=== PATIENT | female | born 1950 | race Caucasian/White ===

== ENCOUNTER 2019-01-28 12:50 | Outpatient (CLI) | payer OTHER ==
--- NOTE | 2019-02-07 09:16 | Mammography Report ---
Reason: SCREENING MAMMO Procedure Date: 01/28/2019 Accession Number: [id number] / [id number] Procedure: MGS - Screening Mammo Dig Bilat CPT Code: FULL RESULT: EXAM: Screening Mammo Dig Bilat DATE: 01/28/2019 1:16 PM CLINICAL HISTORY: Screening encounter. History of late childbearing. Family history of breast cancer in the mother at the age of 65. TECHNIQUE: (B) - Bilateral CC and MLO views were obtained. COMPARISON: 01/31/2018. PARENCHYMAL PATTERN: (F) - The breast(s) demonstrate(s) diffuse fatty replacement. FINDINGS: There are no suspicious masses, calcifications, or areas of distortion. IMPRESSION: Negative examination. BI-RADS category 1. RECOMMENDATION: (ANNUAL) - Recommend routine annual screening mammography. BI-RADS CATEGORY: (1) - Negative. STANDARD QUALIFYING STATEMENTS: 1. This examination was reviewed with the aid of Computer-Aided Detection (CAD). 2. A negative or benign imaging report should not preclude biopsy if clinically suspicious findings are present. 3. Dense breasts may obscure an underlying neoplasm. 4. This examination was reviewed without the aid of 3D breast imaging (tomosynthesis).
== END 2019-01-28 12:51 | disposition home or self-care (01) ==
LOC: DI.S 12:50
DX: Z12.31 Encounter for screening mammogram for malignant neoplasm of breast (principal); Z80.3 Family history of malignant neoplasm of breast
CPT/HCPCS: 77067

== ENCOUNTER 2020-08-20 10:02 | Outpatient (CLI) | payer MEDICARE ==
--- NOTE | 2020-08-20 15:36 | DEXA Report ---
PROCEDURE: Dexa Spine and/or Hip INDICATIONS: DISORDER OF BONE TECHNIQUE: Dual energy x-ray absorptiometry (DXA) was performed on a Babelverse System. Regions measur ed are the AP Spine, femoral neck, and if needed forearm. COMPARISON: None. FINDINGS: Lumbar Spine: Bone Mineral Density 1.165 g/cm/cm,T score -0.1, normal bone mineral density Left Femoral Neck: Bone Mineral Density 0.870 g/cm/cm, T score -1.1, osteopenia (T score greater or equal to -1.0: NORMAL) (T score from -1.1 to -2.4: OSTEOPENIA) (T score less than or equal to -2.5 to: OSTEOPOROSIS) Impression: Osteopenia. Patient is at increased risk for fracture. Patients with diagnosis of osteoporosis or osteopenia should have regular bone mineral density assess ment. For those eligible for Medicare, routine testing is allowed once every 2 years. Testing frequ ency can be increased for patients who have rapidly progressing disease or for those who are receivin g medical therapy to restore bone mass. Reviewed by: Tim Lepe MD on 08/20/2020 3:35 PM PDT Approved by: Tim Lepe MD on 08/20/2020 3:35 PM PDT Station ID: [id number]
== END 2020-08-20 10:03 | disposition home or self-care (01) ==
LOC: DI 10:02
PROVIDERS: ATTEND Physician Assistant
DX: M85.88 Other specified disorders of bone density and structure, other site (principal)

== ENCOUNTER 2020-08-20 10:04 | Outpatient (CLI) | payer MEDICARE ==
--- NOTE | 2020-08-21 09:41 | Mammography Report ---
BILATERAL DIGITAL SCREENING MAMMOGRAM 3D/2D: 08/20/2020 CLINICAL: Routine screening. Comparison is made to exams dated: 01/28/2019 mammogram - [facility] and 01/31/2018 mammogram - [facility]. There are scattered fibroglandular elements in both breasts. No significant masses, calcifications, or other findings are seen in either breast. There has been no significant interval change. IMPRESSION: NEGATIVE There is no mammographic evidence of malignancy. A 1 year screening mammogram is recommended. This exam was interpreted at Station ID: [id number]. NOTE: For mammograms, a report in lay terms will be sent to the patient. Approximately 15% of breast malignancies will not be visualized mammographically. In the management of a palpable breast mass, a negative mammogram must not discourage biopsy of a clinically suspicious lesion. Electronically Signed By: Luis Alfredo Love M.D. ar/penrad:08/20/2020 11:04:46 ACR BI-RADS Category 1: Negative 3341F PARENCHYMAL PATTERN: (A) - The breast(s) demonstrate(s) scattered fibroglandular densities. BI-RADS CATEGORY: (1) - 1 RECOMMENDATION: (ANNUAL) - Recommend routine annual screening mammography. [id number] 1 year screening LATERALITY: (B)
== END 2020-08-20 10:05 | disposition home or self-care (01) ==
LOC: DI 10:04
PROVIDERS: ATTEND Physician Assistant
DX: Z12.31 Encounter for screening mammogram for malignant neoplasm of breast (principal)

== ENCOUNTER 2020-10-16 10:18 | Outpatient (CLI) | payer MEDICARE ==
--- NOTE | 2020-10-16 10:02 | XRAY Report ---
PROCEDURE: Ankle 3 View LT INDICATIONS: LEFT ANKLE PAIN TECHNIQUE: 2 views of the ankle were acquired. COMPARISON: None FINDINGS: No acute fracture. Plantar and posterior calcaneal spurring. Scattered subchondral sclerosis and spurring. Soft tissues unremarkab le IMPRESSION: Degenerative changes as above. No fracture. If the patient's pain or other symptoms pers ist, consider further evaluation with MRI. Reviewed by: Kailash Khanna MD on 10/16/2020 10:01 AM PDT Approved by: Kailash Khanna MD on 10/16/2020 10:01 AM PDT Station ID: [id number]
== END 2020-10-16 10:19 | disposition home or self-care (01) ==
LOC: DI.S 10:18
PROVIDERS: ATTEND Physician Assistant
DX: M77.32 Calcaneal spur, left foot (principal)

== ENCOUNTER 2021-08-24 10:37 | Outpatient (CLI) | payer MEDICARE ==
--- NOTE | 2021-08-27 16:22 | Mammography Report ---
BILATERAL DIGITAL SCREENING MAMMOGRAM 3D/2D: 08/24/2021 CLINICAL: Routine screening. Family history of breast cancer. Comparison is made to exams dated: 08/20/2020 mammogram, 01/28/2019 mamm[address] - [facility], and 01/31/2018 mammogram - [facility]. There are scattered fibrogland ular elements in both breasts. No significant masses, calcifications, or other findings are seen in either breast. There has been no significant interval change. IMPRESSION: NEGATIVE There is no mammographic evidence of malignancy. A 1 year screening mammogram is recommended. This exam was interpreted at Station ID: [id number]. NOTE: For mammograms, a report in lay terms will be sent to the patient. Approximately 15% of breast malignancies will not be visualized mammographically. In the management of a palpable breast mass, a negative mammogram must not discourage biopsy of a clinically suspicious lesion. Electronically Signed By: Luis Alfredo Love M.D. ar/penrad:08/24/2021 11:41:29 ACR BI-RADS Category 1: Negative 3341F PARENCHYMAL PATTERN: (A) - The breast(s) demonstrate(s) scattered fibroglandular densities. BI-RADS CATEGORY: (1) - 1 RECOMMENDATION: (ANNUAL) - Recommend routine annual screening mammography. [id number] 1 year screening LATERALITY: (B)
== END 2021-08-24 10:38 | disposition home or self-care (01) ==
LOC: DI.S 10:37
PROVIDERS: ATTEND Nurse Practitioner Family
DX: Z12.31 Encounter for screening mammogram for malignant neoplasm of breast (principal); Z80.3 Family history of malignant neoplasm of breast